=== PATIENT | male | born 1965 | race Two or more races ===

== ENCOUNTER 2018-09-14 06:21 | Day surgery (SDC) | payer MEDICARE, OTHER ==
--- NOTE | 2018-09-13 21:16 | Pre-op HX & Phy Repo 2 SIG ---
DATE OF ADMISSION: 09/14/2018 ANTICIPATED DATE OF SURGERY: 09/14/2018 PREOPERATIVE DIAGNOSIS: Recurrent vitreous hemorrhaging, left eye. BRIEF NOTE: This is the first [facility] admission for this patient, who is a very nice 53-year-old gentleman with severe proliferative retinopathy, who has had recurrences of vitreous hemorrhaging at least 4 to 5 times in the left eye. He is admitted for a vitrectomy. His past ocular history is remarkable for multiple injections of Avastin in the left eye and prior laser. Despite this, he has continued to bleed on the left. We were unable to get significant laser treatment. PAST MEDICAL HISTORY: Remarkable for diabetes, hypertension, and kidney failure. PAST SURGICAL HISTORY: He had a previous vitrectomy in the right eye in 2009 with stabilization of his retina. CURRENT MEDICATIONS: Include Prolensa, atorvastatin, carvedilol, gabapentin, glipizide, lisinopril, pantoprazole, and amlodipine. He is on dialysis 3 times weekly. ALLERGIES: He has no known allergies. SOCIAL HISTORY: He is a nonsmoker. PHYSICAL EXAMINATION: Best vision at the time of admission was 20/25 in the right eye , 20/50 in the left. External examination was normal with full visual alatorre. Slit-lamp examination showed early nuclear sclerosis in either eye. Fundus examination of right eye showed broad pattern of panretinal laser. There was extensive proliferative diabetic retinopathy, but the retina appeared attached and flat. The left fundus showed moderately dense vitreous hemorrhage with extensive blood down below. There was minimal if any traction. Diabetic edema was seen. General physical examination will be performed by Dr. Schroeder. ASSESSMENT: Recurrent vitreous hemorrhaging, left eye. PLAN: The plan is to perform a pars plana vitrectomy with membrane dissection, endolaser, and Avastin injection in the left. The risks and benefits of surgery were gone over with the patient with potential for infection, hemorrhage, glaucoma, remote possibility of loss of the eye. The risk of anesthesia was discussed. The patient understands and consents to surgery, which will be performed on tomorrow morning. Angelo Robin M.D. DR: Tenzin JOB#: [id number] CC:
[~2018-09-14] VITALS: Ht 30.5 cm; Wt 0.5 kg
[2018-09-14] VITALS (9 sets, daily range): BP systolic 130–148; BP diastolic 69–75
[~2018-09-14 06:21] MED LIST: Cyclopentolate 1% Opth Sol 2ml LEFT EYE SCH; Flurbiprofen 0.03% Opth Sol 2.5ml LEFT EYE SCH; Phenylephrine 2.5% Op 2ml Soln LEFT EYE SCH; Pred Forte 1% Opth Susp 1ml LEFT EYE ONE; Vigamox Opth Soln 3ml LEFT EYE SCH
[2018-09-14] MEDS: Cyclopentolate 1% Opth Sol 2ml LEFT EYE SCH ×3 (06:59→07:30)
[2018-09-14] MEDS: Flurbiprofen 0.03% Opth Sol 2.5ml LEFT EYE SCH ×3 (06:59→07:30)
[2018-09-14] MEDS: Vigamox Opth Soln 3ml LEFT EYE SCH ×3 (06:59→07:30)
[2018-09-14] MEDS: Phenylephrine 2.5% Op 2ml Soln LEFT EYE SCH ×3 (06:59→07:30)
[2018-09-14] MEDS ORDERED: Kenalog-40 1ml Vial ONE (07:00)
[2018-09-14] MEDS ORDERED: Maxitrol Opth Oint 3.5gm ONE (07:00)
[2018-09-14] MEDS ORDERED: Lidocaine 2% MPF 5ml Vial INJ ONE (07:00)
[2018-09-14] MEDS ORDERED: Kenalog-10 5ml Inj ONE (07:00)
[2018-09-14] MEDS ORDERED: BSS 500ml btl ONE (07:01)
[2018-09-14] MEDS ORDERED: BSS 15ml BTL ONE (07:01)
[2018-09-14] MEDS ORDERED: Povidone-Iodine 5% opth solution ONE (07:01)
[2018-09-14] MEDS ORDERED: Tetracaine 0.5% Opth 4ml Soln ONE (07:01)
[2018-09-14] MEDS ORDERED: Dexamethasone 4mg/ml vial ONE (07:01)
[2018-09-14] MEDS ORDERED: Sodium Hyaluronate 10 mg/ml 0.85ml ONE (07:02)
[2018-09-14] MEDS ORDERED: Bupivacaine 0.75% 30ml vial INJ ONE (07:02)
[2018-09-14] MEDS ORDERED: EPINEPHrine 1mg/1ml Amp ONE (07:06)
[2018-09-14] MEDS ORDERED: fentaNYL 100 mcg/2 mL IV ONE (07:23)
[2018-09-14] MEDS ORDERED: Propofol 200mg/20ml IV ONE (07:23)
[2018-09-14] MEDS ORDERED: Midazolam 2mg/2ml Inj ONE (07:23)
--- NOTE | 2018-09-14 07:34 | Anethesia Preoperative Eval ---
Anesthesia Pre-op PMH/ROS General Date of Evaluation: Sep 14, 2018 Time of Evaluation: 07:28 Anesthesiologist: Princess Billings CRNA ASA Score: ASA 3 Mallampati Score Class I : Soft palate, uvula, fauces, pillars visible Class II: Soft palate, uvula, fauces visible Class III: Soft palate, base of uvula visible Class IV: Only hard plate visible Mallampati Classification: Class II Surgeon: Lobito Diagnosis: LEFT eye vitreous hemorrhage Surgical Procedure: LEFT eye pars plana vitrectomy, membrane peel, endolaser Anesthesia History: none Family History: no anesthesia problems Allergies: Coded Allergies: No Known Allergies (Unverified , 09/13/18) Medications: see eMAR Patient NPO?: Yes NPO Date: Sep 14, 2018 NPO Time: 00:00 Past Medical History Cardiovascular: Reports: HTN, other - Hypelipidemia; Denies: CAD, MA, valve dz, arrhythmia Pulmonary: Denies: asthma, COPD, [place], other Gastrointestinal/Genitourinary: Reports: GERD, ESRD - HD q MWP; dialyzed , other - Prostate CA, curretnly receiving chemo; Denies: CRI Neurologic/Psychiatric: Denies: dementia, CVA, depression/anxiety, TIA, other Endocrine: Reports: DM; Denies: hypothyroidism, steroids, other HEENT: Reports: other - LEFT eye vitreous hemorrhage; Denies: cataract (L), cataract (R), glaucoma, [place] (L), [place] (R) Hematology/Immune: Denies: anemia, DVT, bleeding disorder, other Musculoskeletal/Integumentary: Denies: OA, RA, DJD, DDD, edema, other PMH Narrative: as above PSxH Narrative: RIGHT eye surgery, LEFT arm AV fistula, RIGHT chest portacath Anesthesia Pre-op Phys. Exam Physician Exam Hematology Test 09/14/18 07:20 White Blood Count 3.8 K/UL (4.8-10.8) L Red Blood Count 4.26 M/UL (4.70-6.10) L Hemoglobin 11.5 G/DL (14.2-18.0) L Hematocrit 35.4 % (42.0-52.0) L Mean Corpuscular Volume 83 FL (80-99) Mean Corpuscular Hemoglobin 27.0 PG (27.0-31.0) Mean Corpuscular Hemoglobin Concent 32.5 G/DL (32.0-36.0) Red Cell Distribution Width 13.7 % (11.6-14.8) Platelet Count 124 K/UL (150-450) L Mean Platelet Volume 6.9 FL (6.5-10.1) Neutrophils (%) (Auto) 63.1 % (45.0-75.0) Lymphocytes (%) (Auto) 25.5 % (20.0-45.0) Monocytes (%) (Auto) 6.3 % (1.0-10.0) Eosinophils (%) (Auto) 4.7 % (0.0-3.0) H Basophils (%) (Auto) 0.5 % (0.0-2.0) Chemistry Test 09/14/18 07:20 Sodium Level 142 MMOL/L (136-145) Potassium Level 4.9 MMOL/L (3.5-5.1) Chloride Level 104 MMOL/L (98-107) Carbon Dioxide Level 31 MMOL/L (21-32) Anion Gap 7 mmol/L (5-15) Blood Urea Nitrogen 48 mg/dL (7-18) H Creatinine 5.3 MG/DL (0.55-1.30) H Estimat Glomerular Filtration Rate 11.4 mL/min (>60) Glucose Level 119 MG/DL (74-106) H Calcium Level 7.5 MG/DL (8.5-10.1) L Constitutional: NAD Neurologic: CN 2-12 intact Cardiovascular: RRR Respiratory: CTA Gastrointestinal: S/NT/ND Airway Exam Mallampati Score: Class II MO: full Neck: FROM TMD: > 3FB ROM: full Teeth: intact Dentures: no upper, no lower Anesthesia Pre-op A/P Labs Hematology Test 09/14/18 07:20 White Blood Count Pending Red Blood Count Pending Hemoglobin Pending Hematocrit Pending Mean Corpuscular Volume Pending Mean Corpuscular Hemoglobin Pending Mean Corpuscular Hemoglobin Concent Pending Red Cell Distribution Width Pending Platelet Count Pending Mean Platelet Volume Pending Neutrophils (%) (Auto) Pending Lymphocytes (%) (Auto) Pending Monocytes (%) (Auto) Pending Eosinophils (%) (Auto) Pending Basophils (%) (Auto) Pending Chemistry Test 09/14/18 07:20 Sodium Level Pending Potassium Level Pending Chloride Level Pending Carbon Dioxide Level Pending Blood Urea Nitrogen Pending Creatinine Pending Estimat Glomerular Filtration Rate Pending Glucose Level Pending Calcium Level Pending Accucheck 108 Studies Pre-op Studies: EKG - NSR Risk Assessment & Plan Assessment: ASA 3 ok to proceed Plan: MAC Status Change Before Surgery: No Pre-Antibiotics Given Within 1 Hr of Incision: No Princess Billings CRNA Sep 14, 2018 07:34
[2018-09-14 07:37] LABS: BASOPHILS % (AUTO) 0.5 % (0.0-2.0); EOSINOPHILS % (AUTO) 4.7 % (0.0-3.0); HEMATOCRIT 35.4 % (42.0-52.0); HEMOGLOBIN 11.5 G/DL (14.2-18.0); LYMPHOCYTES % (AUTO) 25.5 % (20.0-45.0); MEAN CORPUSCULAR VOLUME 83 FL (80-99); MONOCYTES % (AUTO) 6.3 % (1.0-10.0); NEUTROPHILS % (AUTO) 63.1 % (45.0-75.0); PLATELET COUNT 124 K/UL (150-450); RED BLOOD COUNT 4.26 M/UL (4.70-6.10); RED CELL DISTRIBUTION WIDTH 13.7 % (11.6-14.8); WHITE BLOOD COUNT 3.8 K/UL (4.8-10.8)
[2018-09-14 07:40] LABS: ANION GAP 7 mmol/L (5-15); BLOOD UREA NITROGEN 48 mg/dL (7-18); CALCIUM 7.5 MG/DL (8.5-10.1); CARBON DIOXIDE 31 MMOL/L (21-32); CHLORIDE 104 MMOL/L (98-107); CREATININE 5.3 MG/DL (0.55-1.30); POTASSIUM 4.9 MMOL/L (3.5-5.1); SODIUM 142 MMOL/L (136-145)
--- NOTE | 2018-09-14 07:40 | Pre-Procedure Note/Attestation ---
Pre-Procedure Note/Attestation Complete Prior to Procedure Planned Procedure: left Procedure Narrative: PPV, membrane peel, endolaser, Avastin injection Left eye Indications for Procedure Pre-Operative Diagnosis: Vitreous hemorrhage Left eye Attestation I attest that I discussed the nature of the procedure; its benefits; risks and complications; and alternatives (and the risks and benefits of such alternatives ), prior to the procedure, with the patient (or the patient's legal roofing sales representative). I attest that, if there was a reasonable possibility of needing a blood transfusion, the patient (or the patient's legal roofing sales representative) was given the [facility] standardized written summary, pursuant to the [place] Blood Safety Act ([place] Health and Safety Code # 1645, as amended). I attest that I re-evaluated the patient just prior to the surgery and that there has been no change in the patient's H&P, except as documented below: Angelo Robin MD Sep 14, 2018 07:40
[2018-09-14] MEDS ORDERED: Pred Forte 1% Opth Susp 1ml ONE (07:50)
[2018-09-14] MEDS ORDERED: LORATADINE10 M1 PO (07:53)
[2018-09-14] MEDS ORDERED: ASPIR 8181 MG ORAL (07:53)
[2018-09-14] MEDS ORDERED: PANTOPRAZOLE SO40 MG ORAL (07:53)
[2018-09-14] MEDS ORDERED: GLIPIZIDE5 MG ORAL (07:53)
[2018-09-14] MEDS ORDERED: LOPERAMIDE2 MG PO (07:53)
[2018-09-14] MEDS ORDERED: ATORVASTATIN CA20 MG ORAL (07:53)
[2018-09-14] MEDS ORDERED: CARVEDILOL3.125 MG ORAL (07:53)
[2018-09-14] MEDS ORDERED: LISINOPRIL10 MG ORAL (07:53)
[2018-09-14] MEDS ORDERED: HYDRALAZINE HC100 MG ORAL (07:53)
[2018-09-14] MEDS ORDERED: AMLODIPINE BESY10 MG ORAL (07:53)
[2018-09-14] MEDS ORDERED: DIALYVITE TABL1 EAC1 PO (07:53)
[2018-09-14] MEDS ORDERED: CALCIUM ACETAT667 M1 PO (07:53)
[2018-09-14] MEDS ORDERED: GABAPENTIN100 MG ORAL (07:53)
[2018-09-14] MEDS ORDERED: NS Irrig 1000ml ONE (08:00)
[2018-09-14] MEDS ORDERED: Sterile Water Irrig 1000ml IRRIG ONE (08:00)
--- NOTE | 2018-09-14 08:53 | Immediate Post-Op Evaluation ---
Immediate Post-Op Evalulation Immediate Post-Op Evalulation Procedure: LEFT eye pars plana vitrectomy, membrane peeling, endolaser Date of Evaluation: Sep 14, 2018 Time of Evaluation: 08:45 IV Fluids: 0.9 NS 50 ml Blood Pressure Systolic: 130 Blood Pressure Diastolic: 71 Pulse Rate: 65 Respiratory Rate: 22 O2 Sat by Pulse Oximetry: 96 Temperature (Fahrenheit): 97.1 Pain Score (1-10): 0 Nausea: No Vomiting: No Complications none Patient Status: awake, reacts, patent Hydration Status: adequate Given Within 1 Hr of Incision: Princess Driver CRNA Sep 14, 2018 08:53
--- NOTE | 2018-09-14 08:54 | Brief Operative Note ---
Immediate Post Operative Note Operative Note Chief Complaint: Clouds in vision Left eye Pre-op Diagnosis: Vitreous hemorrhage Left eye Procedure: PPV, membrane peel, endolaser 1040 spots, Left eye Post-op Diagnosis: same as pre-op Surgeon: jayshree Superintendent Service: none Anesthesiologist: Local with sedation Anesthesia: MAC Specimen: none Complications: none Condition: stable Fluids: Per Anesthesia Estimated Blood Loss: none Drains: none Implant(s) used?: No Angelo Robin MD Sep 14, 2018 08:54
[2018-09-14] MEDS ORDERED: Norco 5mg/325mg tab ORAL PRN (09:00)
--- NOTE | 2018-09-14 13:30 | Pre-op HX & Phy Repo 2 SIG ---
DATE OF ADMISSION: 09/14/2018 PRESURGICAL INTERNAL MEDICINE HISTORY AND PHYSICAL REASON FOR EVALUATION: I was asked by Dr. Angelo Robin to see this 53-year-old male, who is going for elective surgery on the left eye. The patient has vitreous hemorrhage, left eye. Please see full Ophthalmology History and Physical by Dr. Angelo Robin. The patient was evaluated. Chart was reviewed. The patient was seen in Outpatient Procedure at [facility]. The patient is alert. The at bedside. PAST MEDICAL HISTORY: Remarkable for hypertension, history of type 2 diabetes, and end-stage renal disease. The patient is having heartburn and recently diagnosed with prostate cancer. Denies history of stroke or seizures. No history of heart attack. No respiratory problem. Denies history of thyroid problem. PAST SURGICAL HISTORY: Left eye surgery, left arm AV shunt for dialysis, chest port insertion for chemotherapy started recently a week ago. FAMILY HISTORY: Mother from complication of diabetes. Father, unknown. ALLERGIES: Not known. PRESENT MEDICATIONS: Include amlodipine 10 mg, aspirin 81 mg, atorvastatin 20 mg, carvedilol 3.125 mg, gabapentin 100 mg, glipizide 2.5 mg daily, hydralazine 100 mg daily, lisinopril, loratadine, and chemotherapy . PHYSICAL EXAMINATION: GENERAL: The patient is alert. VITAL SIGNS: Weight 170 pounds and 5 feet 6 inches tall. VITAL SIGNS: Blood pressure 148/70, temperature 98.5, pulse 67, respirations 20, and O2 saturation 96% on room air. SKIN: Warm and dry. No rashes. LYMPH NODES: Not enlarged. HEENT: Head normocephalic and atraumatic. Ears clear, no discharge. Eyes, full description per Dr. Angelo Robin. Mouth, clear and moist. No dentures. NECK: Supple. No jugular venous distention. Carotids artery +2. Trachea midline. No palpable mass. CHEST: No deformity. Right upper anterior side port access. LUNGS: Clear to auscultation and percussion. No rales or rhonchi. HEART: Sinus rhythm at 70. No ectopy. No murmur. No S3, S4. ABDOMEN: Soft. Benign. Liver and spleen not enlarged. No rebound. EXTREMITIES: No varicose vein. No calf tenderness. Left arm AV shunt. GENITOURINARY TRACT: History of prostate cancer, recently diagnosed. CVA nontender. The patient has end-stage renal disease, on hemodialysis. Last hemodialysis done on September 13, 2018. NERVOUS SYSTEM: No asymmetry. No tremor. No nystagmus. DIAGNOSTIC AND LABORATORY DATA: Electrocardiogram, normal sinus rhythm at 68 per minute, normal ECG. The patient did not eat or drink from 6 p.m. yesterday. Fasting blood sugar this morning 108 mg/dL. Hematology, white blood cells 3.8, hemoglobin 11.5, hematocrit 35%. Chemistry, sodium 142, potassium 4.9, BUN 48, creatinine 5.3, fasting blood sugar 119. IMPRESSION: 1. Vitreous hemorrhage, left eye. 2. Hypertension, controlled. 3. Type 2 diabetes mellitus, controlled. 4. End-stage renal disease, on hemodialysis, last hemodialysis on September 13, 2018. 5. Prostate cancer. PLAN: Pars plana vitrectomy, membrane peel, endolaser, left eye per Dr. Angelo Robin. CONCLUSION: The patient has multiple medical problems with diabetes, hypertension, and end-stage renal disease. The patient was recently diagnosed with prostate cancer, started on chemotherapy. The patient's vital signs stable. Electrocardiogram normal. The patient did not eat or drink from 6 p.m. yesterday. The patient's condition optimized for surgery. Thank you very much, Dr. Robin, for privilege to participate in presurgical care of this interesting patient. Nubia Schroeder M.D. DR: WADE JOB#: [id number] CC:
--- NOTE | 2018-09-14 14:07 | 48 Hour Post Anesthesia Eval ---
Post Anesthesia Evaluation Procedure: LEFT eye pars plana vitrectomy, membrane peeling, endolaser Date of Evaluation: Sep 14, 2018 Time of Evaluation: 10:00 Blood Pressure Systolic: 145 0: 69 Pulse Rate: 70 Respiratory Rate: 18 Temperature (Fahrenheit): 97.3 O2 Sat by Pulse Oximetry: 95 Airway: patent Nausea: No Vomiting: No Pain Intensity: 0 Hydration Status: adequate Cardiopulmonary Status: stable Mental Status/LOC: patient returned to baseline Follow-up Care/Observations: per opthamology Post-Anesthesia Complications: none Follow-up care needed: ready to discharge Princess Billings CRNA Sep 14, 2018 14:06
--- NOTE | 2018-09-14 16:45 | Operative Note - Dictated ---
DATE OF OPERATION: 09/14/2018 PREOPERATIVE DIAGNOSIS: Recurrent vitreous hemorrhage with traction, left eye. POSTOPERATIVE DIAGNOSIS: Recurrent vitreous hemorrhage with traction, left eye. PROCEDURES: 1. Pars plana vitrectomy. 2. Membrane peel. 3. Endolaser, left eye. SURGEON: Angelo Robin M.D. ORNAMENTAL METAL WORKER: None. ANESTHESIA: Local with sedation. JUSTIFICATION FOR SURGERY: This 53-year-old gentleman with a long history of diabetes and renal failure developed recurrent vitreous hemorrhage in the left eye as well as traction. BRIEF NOTE: The patient was brought to the operating room, placed on operating room table in supine position. After time-out was performed and agreed upon by the staff, initial monitoring secured by the anesthesiologist. Retrobulbar and Van Lint blocks were given in the standard way. When the blocks taken effect, he was prepped and draped in normal manner. A lid speculum was inserted into the left eye. Using a 23-gauge trocar system, the cannulas were placed in all except infranasal quadrant. Infusion secured inferotemporally. Vitrectomy was begun posterior to the lens taking care to avoid contact. A central core vitrectomy was done followed by peripheral vitrectomy leaving a small vitreous skirt. A posterior viewing lens was inserted and using the vitrectomy probe as a pick and a cutter, traction bands along both major arcades and overlying the optic nerve were gently severed and removed flushed with the retina. No significant bleeding was encountered. The endolaser was then brought to the eye and a power of 0.3 chan, duration 0.2 seconds, a total of 1040 lesions were applied in the far periphery for lightly treated retina and surrounding the areas of traction attachment. Scleral depression was done and no peripheral breaks, tears, or detachments were seen. The superior cannulas were removed from the eye and the vitreous cleaned from the sclerotomies with the cutter. Each was closed with a single suture of 8-0 Vicryl and removed later. The eye was reinflated and the infusion cannula also removed with the sclerotomy cleaned in the same fashion. This was also closed with 8-0 Vicryl suture. Subconjunctival Celestone and gentamicin were then injected and Maxitrol and atropine ointments were instilled. The eye was patched and shielded and the patient was taken to recovery in excellent condition. There were no complications. Angelo Robin M.D. DR: DEVON JOB#: [id number] CC: Angelo Robin M.D.; Fax#: [phone]
--- NOTE | 2018-09-14 16:55 | Cardiology Report ---
APPROVED REPORT EKG Measurement Heart [id number] Normal sinus rhythm Normal ECG
== END 2018-09-14 10:00 | disposition home or self-care (01) ==
LOC: SUR 06:21
DX: H43.12 Vitreous hemorrhage, left eye (principal); E78.5 Hyperlipidemia, unspecified; I12.0 Hypertensive chronic kidney disease with stage 5 chronic kidney disease or end stage renal disease; E11.22 Type 2 diabetes mellitus with diabetic chronic kidney disease; N18.6 End stage renal disease; Z99.2 Dependence on renal dialysis; Z85.46 Personal history of malignant neoplasm of prostate
CPT/HCPCS: 36415; 67039; 67042; 80048; 82962; 85025; 93005; J0171; J1100; J2250; J2704; J3010; J3470; J3490; 94003; 94150